=== PATIENT | female | born 1955 | race Caucasian/White ===

== ENCOUNTER → 2018-08-29 | Day surgery (SDC) | payer OTHER ==
[~2018-08-29] MED LIST: ALLO100T PO; ATOR40TA59 PO; CARV12.52 PO; CYCL1DRO OP; DIVA-53 PO; DOXA4TAB2 PO; FURO40TA4 PO; HYPR10GE OP; IV RINGERS,LACTATED 1000ML 1,000 ML IV SCH; LEVE500T6 PO; LEVO100T PO; LIDOCAINE 1% PF 2 ML VIAL. ID PRN; METF500T16 PO; MIDAZOLAM HCL/PF 2 MG/2 ML VIAL. IV PRN; POTA10TA12 PO; PROPOFOL 40 ML IV ONE; TELM80TA PO; TRAM50TA PO; fentaNYL PF VIAL 100 MCG/2 ML VIAL IV PRN
[2018-08-29 11:33] VITALS: BP 163/86
--- NOTE | 2018-09-02 08:06 | PATHOLOGY ---
[facility] Accession Number: [id number] . 01 Material submitted: . PART A: SMALL BOWEL PART B: GASTRIC ANTRUM PART C: DISTAL ESOPHAGUS PART D: MID ESOPHAGUS . 01 Clinical history: . Dysphagia . 02 Diagnosis: A. Small bowel biopsies: - Mild nonspecific duodenitis. . B. Gastric biopsies, antrum: - Consistent with reactive gastropathy, with mild chronic inflammation. . C. Esophageal biopsies, distal esophagus: - Segments of hyperplastic squamous esophageal mucosa and gastric mucosa showing slight chronic inflammation. . D. Esophageal biopsy, middle esophagus: - Segments of tangentially oriented mildly hyperplastic squamous esophageal mucosa identified. (JPM:doug; 08/30/2018) QMS/09/02/2018 . 02 Comment: Sections of the small bowel biopsy reveal segments of duodenal mucosa showing congestion and mild chronic inflammation with a few admixed neutrophils. The mucosal villi show no sprue-like changes. . Sections of the gastric antral biopsy show congestion, foveolar hyperplasia, and mild chronic inflammation. A properly controlled immunoperoxidase stain for Helicobacter is negative for Helicobacter organisms. The findings are consistent with a reactive gastropathy. . Sections of the distal esophageal biopsy reveal a segment of tangentially oriented hyperplastic squamous esophageal mucosa, and a segment of gastric mucosa showing slight chronic inflammation. The findings are consistent with reflux esophagitis. There is no evidence of Fuchs's change, dysplasia, or malignancy. . Sections of the middle esophageal biopsy reveal segments of tangentially oriented mildly hyperplastic squamous esophageal mucosa. There is no evidence of Fuchs's change, dysplasia, or malignancy. (JPM:doug; 08/30/2018) . Special stain performed: Immunoperoxidase stain for Helicobacter on B1 . Electronically signed: . Jewel Long MD, Pathologist NPI- [id number] . 01 Gross description: . A. Received in formalin labeled "Cr, [place], small bowel," are 3 segments of espinoza soft tissue measuring 0.9 x 0.8 x 0.2 cm in aggregate dimensions and ranging from 0.3 to 0.5 cm in maximum dimension. The specimen is submitted entirely in cassette A1. . B. Received in formalin labeled "Rc, [place], gastric antrum," are 2 segments of espinoza soft tissue measuring 0.9 x 0.2 x 0.2 cm in aggregate dimensions and ranging from 0.3 to 0.6 cm in maximum dimension. The specimen is submitted entirely in cassette B1. . C. Received in formalin labeled "Cr, [place], distal esophagus," are 2 segments of espinoza soft tissue measuring 0.6 x 0.3 x 0.3 cm in aggregate dimensions and ranging from 0.2 to 0.4 cm in maximum dimension. The specimen is submitted entirely in cassette C1. . D. Received in formalin labeled "Cr, [place], mid esophagus," is a single segment of espinoza soft tissue measuring 0.6 cm in maximum dimension. The specimen is entirely submitted in cassette D1. (TSD; 08/29/2018) TOB/TOB . 02 Pathologist provided ICD-10: K29.80, K31.9, K29.50, K20.9 . 02 CPT . 606675, 096848, 308666, 190422, P17132 Specimen Comment: A courtesy copy of this report has been sent to Specimen Comment: [phone], . Specimen Comment: Report sent to / DR THACKER Specimen Comment: A duplicate report has been generated due to demographic updates. Performed at: 01 [facility] [address], [place], [place] [id number] MD Logan Lopez MD Phone: [phone] Performed at: 02 [facility] [address] [place] [id number] MD Jewel Long MD Phone: [phone]
== END | disposition home or self-care (01) ==
LOC: ENDOS 10:11
PROVIDERS: ATTEND Internal Medicine Gastroenterology
DX: K44.9 Diaphragmatic hernia without obstruction or gangrene (principal); K21.0 Gastro-esophageal reflux disease with esophagitis; K29.80 Duodenitis without bleeding; K29.50 Unspecified chronic gastritis without bleeding; Z91.040 Latex allergy status; G47.30 Sleep apnea, unspecified; E03.9 Hypothyroidism, unspecified; E11.9 Type 2 diabetes mellitus without complications; E78.00 Pure hypercholesterolemia, unspecified; Z86.73 Personal history of transient ischemic attack (TIA), and cerebral infarction without residual deficits; M19.90 Unspecified osteoarthritis, unspecified site; Z79.82 Long term (current) use of aspirin; Z79.84 Long term (current) use of oral hypoglycemic drugs; Z79.899 Other long term (current) drug therapy; Z98.51 Tubal ligation status; Z98.890 Other specified postprocedural states
CPT/HCPCS: 43239; 43450; 82962; 88305; 88342; J2704

== ENCOUNTER → 2018-12-26 | Outpatient (CLI) | payer OTHER ==
[2018-08-29 11:33] VITALS: BP 163/86
[~2018-12-26] MED LIST changes: +CARV12.511 PO; -CARV12.52 PO; -IV RINGERS,LACTATED 1000ML 1,000 ML IV SCH; -LIDOCAINE 1% PF 2 ML VIAL. ID PRN; -MIDAZOLAM HCL/PF 2 MG/2 ML VIAL. IV PRN; -PROPOFOL 40 ML IV ONE; -fentaNYL PF VIAL 100 MCG/2 ML VIAL IV PRN
--- NOTE | 2018-12-26 14:44 | RAD ---
Radionuclide gastric emptying study, 12/26/2018: HISTORY: Early satiety The exam was performed utilizing a solid test meal radiolabeled with 2 mCi of technetium 99m sulfur colloid. The following gastric retention values were obtained: 1 hour-42 percent 2 hours-4 percent 3 hours-0 percent These values are in the normal range. A T1/2 of 47 minutes was also obtained which is normal. IMPRESSION: Normal gastric emptying study. Electronically signed by: Fidencio Garcia MD (12/26/2018 2:41 PM) [facility]
== END | disposition home or self-care (01) ==
LOC: NM 08:30
PROVIDERS: ATTEND Physician Assistant
DX: R68.81 Early satiety (principal)
CPT/HCPCS: 78264; A9541

== ENCOUNTER → 2019-04-03 | Outpatient (CLI) | payer OTHER ==
[2018-08-29 11:33] VITALS: BP 163/86
[~2019-04-03] VITALS: Ht 152.4 cm; Wt 90.7 kg
[~2019-04-03] MED LIST changes: +SINCALIDE 1.8 MCG in IV NORMAL SALINE 50ML 30 ML IV ONE
--- NOTE | 2019-04-03 08:36 | RAD ---
Abdominal ultrasound, 04/03/2019: HISTORY: Abdominal pain, bloating The gallbladder is within normal limits in size. There is no sonographic evidence of cholelithiasis. The gallbladder still are not thickened. The common hepatic duct is of normal caliber. There is no evidence of a hepatic mass. The visualized portions of the pancreas, spleen and both kidneys are unremarkable. The upper abdominal aorta and inferior vena cava are unremarkable. Inferiorly those structures were obscured by overlying bowel. No free fluid is evident in the abdomen. IMPRESSION: No significant abnormality is detected. Electronically signed by: Fidencio Garcia MD (04/03/2019 8:33 AM) [facility]
--- NOTE | 2019-04-03 16:25 | RAD ---
Radionuclide hepatobiliary scan with gallbladder ejection fraction, 04/03/2019: HISTORY: Abdominal pain and bloating Following IV injection of 5.5 mCi of technetium 99m Choletec there was prompt uptake of the radionuclide from the blood stream by the liver. Activity is present in the bile ducts and gallbladder at 5 minutes. Initial imaging out to 1 hour showed increasing activity in the gallbladder without extension into the small bowel. Additional imaging was performed following IV injection of 1.8 mcg of cholecystokinin. There is good gallbladder emptying with subsequent development of small bowel activity. The gallbladder ejection fraction was calculated at 97 percent. IMPRESSION: 1. No evidence of cystic duct or common bile duct obstruction. 2. The gallbladder ejection fraction is 97 percent. Electronically signed by: Fidencio Garcia MD (04/03/2019 4:23 PM) [facility]
== END | disposition home or self-care (01) ==
LOC: US 07:41
PROVIDERS: ATTEND Internal Medicine Gastroenterology
DX: F45.8 Other somatoform disorders (principal); R10.9 Unspecified abdominal pain
CPT/HCPCS: 76700; 78227; A9537; J2805

== ENCOUNTER → 2020-11-15 | Outpatient (CLI) | payer MEDICARE, OTHER ==
[2018-08-29 11:33] VITALS: BP 163/86
[~2020-11-15] MED LIST changes: +LEVO-101 PO; -LEVO100T PO; -POTA10TA12 PO; +POTASSIUM CHLO10 ME1 PO; -SINCALIDE 1.8 MCG in IV NORMAL SALINE 50ML 30 ML IV ONE
--- NOTE | 2020-11-15 16:37 | RAD ---
Bilateral lower extremity arterial duplex study 11/15/2020 CLINICAL HISTORY: Nonpalpable foot pulses. TECHNIQUE: Using a combination of real-time ultrasound imaging and color-flow and pulse Doppler imagi ng techniques, duplex evaluation of the major arterial structures of both lower extremities was perfo rmed. Multiple images were obtained. FINDINGS: Mild to moderate atheromatous/atherosclerotic plaque formation is seen scattered throughout the major arterial structures of both lower extremities. The arterial waveforms of the major arteria l structures of both lower extremities are triphasic with the exception of the dorsalis pedis arterie s bilaterally which are monophasic. The peak systolic velocities taper normally. No hemodynamically s ignificant stenosis is seen. Neither peroneal artery is visualized. They may be small versus occluded . IMPRESSION: Mild atheromatous/atherosclerotic plaque formation is seen scattered throughout the major arterial structures of both lower extremities. Neither peroneal artery is visualized. They may be sm all versus occluded. No hemodynamically significant stenosis is seen. Electronically signed by: Sandeep Trejo MD (11/15/2020 4:34 PM) [id number]
== END ==
LOC: US 06:40
PROVIDERS: ATTEND Podiatrist
DX: I70.293 Other atherosclerosis of native arteries of extremities, bilateral legs (principal)
CPT/HCPCS: 93925

== ENCOUNTER → 2021-03-01 | Day surgery (SDC) | payer MEDICARE, OTHER ==
[2018-08-29 11:33] VITALS: BP 163/86
--- NOTE | 2021-03-09 10:43 | RAD ---
INDICATION: 65 years of age asymptomatic female patient presents for screening mammography. TECHNIQUE: Full field craniocaudal and mediolateral oblique images of both breasts were obtained usi ng digital technique with tomosynthesis and also analyzed with computer-aided detection software. COMPARISON: 05/06/19, 01/07/16. BREAST COMPOSITION: Category B: There are scattered fibroglandular densities. FINDINGS: Benign calcifications are present. The parenchymal pattern appears stable. Focal asymmetry in the slightly medial and slightly inferior right breast best seen on tomographic im ages ( and ). No suspicious right breast microcalcification or architectural distortion. No suspicious masses, microcalcifications or architectural distortion is present to suggest malignanc y in the left breast. The visualized axillae are unremarkable. IMPRESSION: Right breast focal asymmetry, findings for which additional imaging is advised. RECOMMENDATION: The patient will be contacted to return for additional imaging and a supplemental rep ort will follow. Additional imaging to include spot compression views and ultrasound. BIRADS 0: INCOMPLETE - NEED ADDITIONAL IMAGING EVALUATION AND/OR PRIOR MAMMOGRAMS FOR COMPARISON. This study was interpreted with the benefit of Computerized Aided Detection (CAD). Patient information is entered into the reminder system with a target due date for the next screening mammogram. Mammography is the most sensitive method for finding small breast cancers, but it does not detect the m all and is not a substitute for careful clinical examination. A negative mammogram does not negate a clinically suspicious finding and should not result in delay in biopsying a clinically suspicious a bnormality. "Our facility is accredited by the [employer] Mammography Program." Electronically signed by: Geovany Becker MD (03/09/2021 10:40 AM) [facility]
== END ==
LOC: MAMMO 12:43
PROVIDERS: ATTEND Family Medicine
DX: Z12.31 Encounter for screening mammogram for malignant neoplasm of breast (principal)
CPT/HCPCS: 77063; 77067

== ENCOUNTER → 2021-03-29 | Outpatient (CLI) | payer MEDICARE, OTHER ==
[2018-08-29 11:33] VITALS: BP 163/86
--- NOTE | 2021-03-29 10:01 | RAD ---
EXAM: Right breast diagnostic mammogram; right breast sonogram. HISTORY: 65-year-old female presents for evaluation of nodularity within the right breast demonstrate d on a screening mammogram dated 03/01/2021. TECHNIQUE: Spot compression views of the right breast are obtained. Sonographic imaging of the right breast targeted to the site of mammographic nodularity was also performed. COMPARISON: 03/01/2021 BREAST PARENCHYMAL DENSITY: Level B - Scattered fibroglandular densities. FINDINGS: There is no persistent finding of concern within the right breast with additional mammograp hic views. There are several benign calcifications within the right breast, including small periphera lly calcified oil cysts . Sonographic imaging of the right breast targeted to the site of prior nodularity demonstrates a 4 mm circumscribed hypoechoic lesion without internal blood at the 4:00 position 4 cm from the nipple. Thi s demonstrates an echogenic rim and internal echoes, favoring a complicated cyst and possibly an afor ementioned oil cyst demonstrated mammographically IMPRESSION: 1. No persistent finding of concern within the right breast. There is a 4 mm complicated cyst at the 4:00 position 4 cm from the nipple demonstrated sonographically, possibly corresponding with an oil c yst demonstrated mammographically. 2. BI-RADS Category 2: Benign finding(s). RECOMMENDATION: Annual mammography is recommended. If your mammogram demonstrates that you have dense breast tissue, which could hide abnormalities, and if you have other risk factors for breast cancer that have been identified, you might benefit from s upplemental screening tests that may be suggested by your ordering physician. Dense breast tissue, i n and of itself, is a relatively common condition. This information is not provided to cause undue c oncern, but rather to raise your awareness and to promote discussion with your physician regarding th e presence of other risk factors, in addition to dense breast tissue. A report of your mammography re sults will be sent to you and your physician. You should contact your physician if you have any ques tions or concerns regarding this report. Mammography is a sensitive method for finding small breast cancers, but it does not detect them all a nd is not a substitute for careful clinical examination. A negative mammogram does not negate a clin ically suspicious finding and should not result in delay in biopsying a clinically suspicious abnorma lity. PQRS compliance statement - Patient information was entered into a reminder system with a target due date for the next mammogram. "Our facility is accredited by the [employer] Mammography Program." Electronically signed by: Kassie Paul MD (03/29/2021 9:59 AM) [id number]
== END ==
LOC: MAMMO 11:14
PROVIDERS: ATTEND Family Medicine
DX: N60.01 Solitary cyst of right breast (principal)
CPT/HCPCS: 76641; 77065

== ENCOUNTER → 2021-05-31 | Outpatient (CLI) | payer MEDICARE, OTHER ==
[2018-08-29 11:33] VITALS: BP 163/86
--- NOTE | 2021-05-31 19:28 | CARD ---
MR#: [id number] Date of Study: 05/31/2021 Ordering Physician: ARRON THOMPSON, Referring Physician: RARON THOMPSON, Tech: Megha Acosta [facility] APPROVED REPORT EXAM: Two-dimensional and M-mode echocardiogram with Doppler and color Doppler. Other Information Quality : Average Rhythm : NSR INDICATION Hypertension/HCVD RISK FACTORS Hypertension Obesity Hyperlipidemia Diabetes 2D DIMENSIONS RVDd3.0 (2.9-3.5cm)Left Atrium(2D)2.7 (1.6-4.0cm) IVSd1.7 (0.7-1.1cm)Aortic Root(2D)2.9 (2.0-3.7cm) LVDd2.9 (3.9-5.9cm)LVOT Diameter2.0 (1.8-2.4cm) PWd1.4 (0.7-1.1cm)LVDs1.7 (2.5-4.0cm) FS (%) 41.0 %SV24.2 ml Aortic Valve AoV Peak Richar.190.7cm/sAoV VTI38.9cm AO Peak GR.14.6mmHgLVOT Peak Richar.110.4cm/s AO Mean GR.6mmHgAVA (VMAX)1.77cm2 Mitral Valve MV E Enclsrhz52.9cm/sMV DECEL [id number] MV A Poiodooe80.5cm/sE/A Ratio0.7 Tricuspid Valve TR P. [id number]/sTR Peak Gr.28mmHg LEFT VENTRICLE The left ventricle is normal size. Mild to moderate left ventricular hypertrophy. The left ventricula r systolic function is normal. LV ejection fraction is 60 to 65%. There is normal LV segmental wall motion. Transmitral Doppler flow pattern is Grade I-abnormal relaxation pattern. RIGHT VENTRICLE The right ventricle is normal size. There is normal right ventricular wall thickness. The right ventr icular systolic function is normal. ATRIA The left atrium size is normal. The right atrium size is normal. AORTIC VALVE The aortic valve is normal in structure and function. Doppler and Color Flow revealed no significant aortic regurgitation. There is no significant aortic valvular stenosis. MITRAL VALVE The mitral valve is normal in structure and function. There is no evidence of mitral valve prolapse. There is no mitral valve stenosis. Doppler and Color-flow revealed mild mitral regurgitation. TRICUSPID VALVE The tricuspid valve is normal in structure and function. Doppler and Color Flow revealed trace tricus pid regurgitation. Estimated PAP 30 mmHg. There is no tricuspid valve stenosis. PULMONIC VALVE The pulmonary valve is normal in structure and function. Doppler and Color Flow revealed mild pulmoni c valvular regurgitation. GREAT VESSELS The aortic root is normal in size. The ascending aorta is normal in size. The IVC is normal in size a nd collapses >50% with inspiration. PERICARDIAL EFFUSION There is no evidence of significant pericardial effusion. Critical Notification Critical Value: No <Conclusion> The left ventricle is normal size. The left ventricular systolic function is normal. LV ejection fraction is 60 to 65%. Mild to moderate left ventricular hypertrophy. Doppler and Color Flow revealed no significant aortic regurgitation. There is no significant aortic valvular stenosis. Doppler and Color-flow revealed mild mitral regurgitation. Doppler and Color Flow revealed trace tricuspid regurgitation. Estimated PAP 30 mmHg. Signed by : Arron Thompson MD Electronically Approved : 05/31/2021 19:27:27
== END ==
LOC: ECHO 12:55
PROVIDERS: ATTEND Internal Medicine Cardiovascular Disease
DX: I37.1 Nonrheumatic pulmonary valve insufficiency (principal); I51.7 Cardiomegaly; R60.0 Localized edema
CPT/HCPCS: 93306

== ENCOUNTER → 2021-05-31 | Outpatient (CLI) | payer MEDICARE, OTHER ==
[2018-08-29 11:33] VITALS: BP 163/86
--- NOTE | 2021-05-31 15:33 | RAD ---
MR#: [id number] Date of Study: 05/31/2021 Ordering Physician: RADHIKA FRIEDMAN, Referring Physician: RADHIKA FRIEDMAN, Tech: Amauri Solano MBA, RDMS, RVT, RDCS, RTR APPROVED REPORT Patient Location : OUT-PATIENT Indications Lower Extremity Edema : Bilateral Findings Limited grayscale images of the bilateral saphenofemoral junctions are grossly unremarkable. The right great saphenous vein measures 5.5 mm and the left great saphenous vein measures 5.7 mm. The bilateral greater and lesser saphenous veins did not show any evidence of reflux. Critical Notification Critical Value: No <Conclusion> 1. Negative for reflux in the bilateral greater and lesser saphenous veins. Signed by : Thomas Angeles, Electronically Approved : 05/31/2021 15:32:35
--- NOTE | 2021-05-31 15:34 | RAD ---
MR#: [id number] Date of Study: 05/31/2021 Ordering Physician: RADHIKA FRIEDMAN, Referring Physician: RADHIKA FRIEDMAN, Tech: Amauri Solano MBA, RDMS, RVT, RDCS, RTR APPROVED REPORT Bilateral Lower Extremity Venous Study for DVT Patient Location: OUT-PATIENT Indications Lower Extremity Edema: Bilateral Vein Imaging (Right) CFV (R): Compressible SFJ (R): Compressible FEM (R): Compressible POP (R): Compressible DFV (R): Compressible PTV (R): Spontaneous GSV (R): Spontaneous Peroneals (R): Spontaneous Vein Imaging (Left) CFV (L): Compressible SFJ (L): Compressible FEM (L): Compressible POP (L): Compressible DFV (L): Compressible PTV (L): Spontaneous GSV (L): Spontaneous Peroneals (L): Spontaneous Doppler Evaluation (Right) CFV (R): Spontaneous POP (R):Spontaneous Doppler Evaluation (Left) CFV (L):Spontaneous POP (L):Spontaneous Findings The bilateral lower extremity deep veins were evaluated for thrombus with color Doppler, spectral and grayscale images. On the right the grayscale images of the common femoral, superficial femoral and popliteal veins do n ot demonstrate any evidence of thrombus and these veins appear to be compressible. The below-knee vei ns were not well visualized but grossly appear to be compressible. Spectral imaging and color Doppler do not reveal any evidence of obstruction to flow with normal respirophasic variation above the knee . Below the knee there is spontaneous flow noted. On the left, the grayscale images of the common femoral, superficial femoral and popliteal veins do n ot demonstrate any evidence of thrombus and these veins appear to be compressible. The below-knee vei ns again were not well visualized but grossly appear to be compressible. Spectral imaging and color D oppler do not reveal any evidence of obstruction to flow with normal respirophasic variation above th e knee. The below-knee veins demonstrate spontaneous flow. Critical Notification Critical Value: No <Conclusion> 1. Negative for DVT in the bilateral lower extremities. Signed by : Thomas Angeles, Electronically Approved : 05/31/2021 15:33:47
== END ==
LOC: US 12:48
PROVIDERS: ATTEND Internal Medicine Cardiovascular Disease
DX: R60.0 Localized edema (principal)
CPT/HCPCS: 93970